=== PATIENT | female | born 1980 | race Caucasian/White ===

== ENCOUNTER 2024-10-23 19:12 | Emergency (ER) | payer MEDICARE, OTHER, SELFPAY ==
[2024-10-23 19:19] VITALS: BP 130/50
[2024-10-23 20:00] VITALS: BP 119/45
[2024-10-23 20:55] VITALS: BMI 44.7
[2024-10-23 20:56] LABS: Hematocrit 30.5 % (37.0-47.0); Hemoglobin 9.1 g/dL (12.0-16.0); Mean Corp Hgb Conc. 29.8 g/dL (33.0-37.0); Mean Corpuscular Volume 87.1 fL (81.0-99.0); Nucleated Red Blood Cells % 1.6 %; Platelet Count 267 10^3/uL (130-400); Red Cell Dist. Width 17.1 % (11.5-14.5)
[2024-10-23 21:14] LABS: ALT (SGPT) < 10 U/L (0-35); AST (SGOT) 13 U/L (14-36); Albumin 3.7 g/dl (3.5-5.0); Alkaline Phosphatase 48 U/L (38-126); Blood Urea Nitrogen 9 mg/dl (7-17); Calcium 8.4 mg/dl (8.4-10.2); Carbon Dioxide 34 mmol/L (22-30); Chloride 106 mmol/L (98-107); Estimated Creatinine Clearance 97 ml/min; Glucose 88 mg/dl (70-99); Potassium 3.7 mmol/L (3.5-5.1); Sodium 144 mmol/L (135-145); Total Protein 6.4 g/dl (6.3-8.2); eGFR > 60.00
--- NOTE | 2024-10-23 21:44 | ED.GENMED ---
History of Present Illness
General
Chief Complaint: Weakness
Source: patient and [facility]
Time Seen by Provider: 10/23/24 19:23
History of Present Illness
History of Present Illness:
Note:
CHIEF COMPLAINT(S)
Facial swelling.
HISTORY OF PRESENT ILLNESS
The patient is a 43-year-old female with a considerable medical history, including malignant neoplasm of the brain, gastrointestinal bleed, esophageal varices, syphilis, diabetes insipidus, hypopituitarism, stroke, and generalized weakness. She has
undergone craniotomy previously for the removal of meningiomas. The patient presented from [facility] with concerns raised about potential facial swelling. Medics confirmed that the patient was sent due to a concern of facial
swelling, and she has a known history of traumatic brain injury. On examination, the patient reported no tenderness in the facial area and described any perceived swelling as minor. Physical examination showed no significant tenderness or
fluctuance, and minimal swelling was observed in the left maxillary region.
Additional historian
Case discussed with the [facility] staff reports they are concerned about some left-sided facial weakness and that she was tremulous in bilateral upper extremities. They also mention that her eyes bilaterally were twitching. They did not suspect
seizure.
PHYSICAL EXAM
General: Alert, no acute distress.
Skin: Warm, dry.
Head: Normocephalic, atraumatic.
Neck: Supple, trachea midline.
Eye, Ears, Nose, Mouth and Throat: Oral mucosa moist.
Cardiovascular: Normal peripheral perfusion, No edema.
Respiratory: Respirations are non-labored.
Gastrointestinal: Abdomen nondistended
Back: Normal range of motion, Normal alignment.
Musculoskeletal: Normal range of motion, normal strength.
Neurological: Alert and oriented to person, place, time, and situation, No focal neurological deficit observed.
Psychiatric: Cooperative, appropriate mood & affect.
DIFFERENTIAL DIAGNOSIS
The Differential Diagnosis includes, in no particular order and is not limited to:
-CVA
-TIA
- Seizure
- Electrolyte imbalance
- Encephalopathy
- Intracranial hemorrhage
Disposition:
SUMMARY OF ENCOUNTER
The patient is a 43-year-old female with a significant medical history including traumatic brain injury and previous craniotomy for meningiomas. She presented to the emergency department due to staff concerns about potential left facial drooping.
The patient denied any complaints and felt she was at her baseline. Examination did not show signs of acute distress, and a CT scan of the head was unremarkable for any acute findings. Her lab work indicated a normal comprehensive metabolic panel
(CMP), normal white blood cell count, and normal platelets, with mild anemia noted at hemoglobin 9.1. The patient is known to have left-sided weakness. Vital signs were stable.
DISPOSITION
The patient is deemed stable for discharge and will continue monitoring at the [facility].
INDEPENDENT REVIEW OF LABS AND INTERPRETATION OF TESTS
My independent review of the complete blood count (CBC) shows mild anemia with hemoglobin at 9.1; white blood cells and platelets are normal.
My independent review of CMP is normal.
My independent CT head interpretation is unremarkable for any acute findings.
FOLLOW-UP INSTRUCTIONS
Continue monitoring at the [facility].
MEDICAL DECISION MAKING
-Complexity of Data Reviewed: Chronic conditions affecting care include a history of traumatic brain injury, craniotomy for meningiomas, and left-sided weakness. Potential causes for facial drooping considered in the differential diagnosis include
facial trauma or injury, allergic reaction, infection, sinusitis, dental abscess, parotid gland disorder, angioedema, thyroid dysfunction, lymphedema, and tumor or cyst in the facial area.
-Data:
Category 1
My independent interpretation of CT scan was unremarkable. Lab work reviewed includes CBC indicating mild anemia.
-Risk:
Consideration of Admission/Observation: Escalation of care including admission/observation was considered given the complexity and risk of the patients presenting complaint, exam findings, and underlying comorbidities. However, ultimately, I feel
the patient is safe for outpatient management with close follow-up. Reasoning: Work-up reassuring, does not reveal any acute life/organ threatening processes, patients symptoms well controlled upon reevaluation, reexamination is reassuring, vitals
are stable, patient agreeable with discharge, and reliable for follow-up.
DIAGNOSIS
Facial drooping, unspecified (ICD-10 code R29.710).
Mild anemia (ICD-10 code D64.9).
Phy Exam
Physical Exam
Physical Exam:
.
Course
Orders/Labs/Results
Orders:
Orders
10/23/24 20:36
CT Head W/o Iv Contrast Urgent
Comment:
Reason For Exam: possible L facial weakness. h/o TBI, h/o crani
10/23/24 20:51
Complete Blood Count/With Diff Urgent
Comprehensive Metabolic Panel Urgent
Abnormal Lab Results
10/23/24
20:51
RBC 3.50 L 10^6/uL
(4.20-5.40)
Hgb 9.1 L g/dL
(12.0-16.0)
Hct 30.5 L %
(37.0-47.0)
MCH 26.0 L pg
(27.0-31.0)
MCHC 29.8 L g/dL
(33.0-37.0)
RDW 17.1 H %
(11.5-14.5)
Abs Immat Gran (auto) 0.3 H 10^3/uL
(0-0.05)
Absolute Neuts (auto) 7.6 H 10^3/uL
(1.4-6.5)
Absolute Lymphs (auto) 1.0 L 10^3/uL
(1.2-3.4)
Immature Gran % 2.7 H %
(0-0.5)
Neutrophils % 80.5 H %
(42.2-75.2)
Lymphocytes % 10.9 L %
(20.5-51.1)
Carbon Dioxide 34 H mmol/L
(22-30)
AST 13 L U/L
(14-36)
10/23/24 20:51
10/23/24 20:51
Vital Signs
Initial and Last Documented VS:
Initial Vital Signs
Temp Pulse Resp BP Pulse Ox
98.5 F 97 22 130/50 100
10/23/24 19:19 10/23/24 19:19 10/23/24 19:19 10/23/24 19:19 10/23/24 19:19
Last Documented Vital Signs
Temp Pulse Resp BP Pulse Ox
98.5 F 83 17 119/45 99
10/23/24 19:19 10/23/24 20:45 10/23/24 20:45 10/23/24 20:00 10/23/24 20:45
*Pulse Oximetry
SaO2: 99
Oxygen Mode of Delivery: Room air
Patient hypoxic: no
*Critical Care Note
Total Time (30-74mins, 75-104mins- exclusive of procedures): Not Applicable
ED Attending Note
-
Portions of this chart may have been created with voice recognition software.� Occasional wrong word or��sound alike� substitutions may have occurred due to the inherent limitations of voice recognition software.
Discharge Plan
Departure
Patient Disposition: Home (Routine Discharge)
Date of Disposition: 10/23/24
Time of Disposition: 21:47
Patient with high blood pressure during this ER visit?: No
Discharge Problem:
Tremulousness, Weakness
Instructions: Generalized Weakness (DC)
Referrals:
Clifford Kennedy DO [Family Provider, Internal Medicine]
Activity Restrictions/Additional Instructions:
Return immediately for changes in mentation, fevers, weakness of any kind or any other concerns. Please see your doctor in the next 2 to 3 days for follow-up evaluation.
Interventions
Interventions:
*Risk Screen - Suicide Last Done: 10/23/24 19:48
*General Assessment Last Done: 10/23/24 19:48
*Neglect/Abuse Screening Last Done: 10/23/24 19:48
*ED- Fall Risk Assessment Last Done: 10/23/24 19:48
*ED COVID-19 Vaccine History Last Done: 10/23/24 19:48
ED- Cardiac Assessment Last Done: 10/23/24 20:53
ED- Neurological Assessment Last Done: 10/23/24 20:55
ED- Pulmonary Assessment Last Done: 10/23/24 20:53
Discharge Date and Time
Print Language: HUNGARIAN
== END 2024-10-23 22:47 | disposition home or self-care (01) ==
LOC: EMR 19:12
PROVIDERS: EMERGENCY PHYSICIAN Emergency Medicine; FAMILY PHYSICIAN Internal Medicine Geriatric Medicine
DX: R25.1 Tremor, unspecified (principal); R53.1 Weakness; E23.2 Diabetes insipidus; A53.9 Syphilis, unspecified; E23.0 Hypopituitarism; Z86.73 Personal history of transient ischemic attack (TIA), and cerebral infarction without residual deficits; D64.9 Anemia, unspecified
CPT/HCPCS: 99284; 70450; 80053; 85025